=== PATIENT | female | born 1955 | race Asian ===

== ENCOUNTER 2017-03-25 13:28 | Day surgery (SDC) | payer OTHER ==
[~2017-03-25] VITALS: Ht 152.4 cm; Wt 45.8 kg
[2017-03-25] MEDS ORDERED: LIDOCAINE 2% (SDV) 5 ML INJ ONE (14:02)
[2017-03-25] MEDS ORDERED: PROPOFOL 20 ML ONE (14:02)
[2017-03-25 14:04] VITALS: Ht 152.4 cm; Wt 45.8 kg
[2017-03-25] MEDS ORDERED: SIMV-39 PO (14:07)
[2017-03-25] MEDS ORDERED: AMLO-147 PO (14:07)
[2017-03-25 14:09] VITALS: BP 120/73; PULSE 67; RESP 16
--- NOTE | 2017-03-26 09:41 | GILP ---
DATE OF PROCEDURE: 03/25/2017 PROCEDURE: Colonoscopy. PREOPERATIVE DIAGNOSIS: Screening colonoscopy. POSTOPERATIVE DIAGNOSIS: Normal colon, mildly tortuous colon. DESCRIPTION OF PROCEDURE: The patient was put in left lateral decubitus position, after obtaining informed consent. Sedated by the anesthesiologist, Dr. Alonzo. Rectal exam done. Advanced a Olympus video colonoscope all the way to cecum, somewhat tortuous left colon. Otherwise the cecum, ascending colon, transverse colon, descending colon, sigmoid colon, rectum, essentially normal. Postop, the patient had no complications. RECOMMENDATIONS: Follow up with primary MD. Repeat colonoscopy in 10 years. Dictated By: Fernando Wise MD /tao/mega /Document#: [id number] ; Dr. Amarjit Montgomery
== END 2017-03-25 16:20 | disposition home or self-care (01) ==
LOC: GIL 13:28
PROVIDERS: ATTEND Internal Medicine
DX: Z12.11 Encounter for screening for malignant neoplasm of colon (principal); I10 Essential (primary) hypertension; E78.5 Hyperlipidemia, unspecified
CPT/HCPCS: 45378; Z7610